=== PATIENT | female | born 1995 | race Caucasian/White ===

== ENCOUNTER 2018-04-21 09:54 | Emergency (ER) | payer OTHER ==
[~2018-04-21] VITALS: Ht 180.3 cm; Wt 95.5 kg
[2018-04-21 10:50] VITALS: BP 136/77
[2018-04-21] MEDS ORDERED: ONDANSETRON HCL 4 MG TABLET PO ONE (11:00)
== END 2018-04-21 12:01 | disposition home or self-care (01) ==
LOC: EMS 09:55
DX: K52.9 Noninfective gastroenteritis and colitis, unspecified (principal)
CPT/HCPCS: 81025; 99283; Q0162